=== PATIENT | female | born 1970 | race Caucasian/White ===

== ENCOUNTER → 2018-04-13 | Outpatient (CLI) | payer OTHER ==
--- NOTE | 2018-04-13 22:06 | CONS ---
CONSULTATION REASON FOR CONSULTATION: Hypersomnia. This is a 47-year-old, obese female patient coming in for daytime sleepiness and tiredness. This is an ongoing problem. It has been going on for many years. This patient has multiple medical problems and comorbidities. To mention a few, she has hypertension, diabetes mellitus, and diabetic nerve pain and fibromyalgia and degenerative arthritis and degenerative disc disease involving the cervical and lumbar spine. She has also chronic anxiety, depression and panic attacks. As such, she is on a combination of medications several of which have side effects and toxicities and implications on her sleep quality and patterns. Specifically, the patient is on a combination of citalopram and Cymbalta for chronic pain. She is also taking Neurontin 300 mg 3 times a day which is totaling 900 mg on a daily basis. She snores heavily. She goes to bed around 2:30 am, wakes up at 9:30 am in the morning. She does not feel refreshed. She can easily fall asleep during the day as she does and she takes brief naps here and there. In addition, she has restlessness in lower extremities, leg kicks, cramps, grinding of the teeth, snoring. No nightmares. No hallucinations. No sleep paralysis. No cataplexy. Her current [place] score is at 13. Due to her chronic pain, anxiety and depression, the patient has been utilizing marijuana and she typically smokes 1-2 joints at bedtime and several other joints during the day. As far as pain control, she used to take narcotic medication to which she was labeled as allergic at a later stage and I do not see any pain killers or narcotic medications currently on her list. Weight has been up gradually over the years. The patient has gained significant amount of weight. She does have features of obstructive sleep apnea that needs to be further investigated. PAST MEDICAL HISTORY: Of hypertension, diabetes mellitus, peripheral neuropathy, fibromyalgia and degenerative arthritis. Cervical and lumbar disc disease. Osteoarthritis, depression, anxiety, panic attacks, and irritable bowel syndrome and carpal tunnel disease. PAST SURGICAL HISTORY: Surgeries include laparoscopic cyst removal from the abdomen/ovaries, hysterectomy, oophorectomy. EGD, tonsillectomy, heel spur surgery on both feet. OUTPATIENT MEDICATION LIST: Includes: 1. Xanax 0.5 mg twice a day p.r.n. basis. 2. Naprosyn 500 mg twice a day on a p.r.n. basis. 3. 4 mg twice a day. 4. She is also on citalopram 40 mg p.o. daily. 5. Cymbalta 600 mg p.o. daily. 6. Metformin 750 mg p.o. twice a day. 7. Actos 15 mg p.o. daily. 8. Neurontin 300 mg 3 times a day. 9. Lipitor 40 mg p.o. daily. 10.Oxybutynin 50 mg p.o. daily. 11.Lisinopril 10 mg p.o. daily. 12.Verapamil 120 mg p.o. daily. 13.Zyrtec 10 mg p.o. daily. 14.Ranitidine 175 mg p.o. twice a day. 15.Omeprazole 20 mg p.o. daily. SOCIAL HISTORY: She is a nonsmoker. No history of alcohol. No history of IV drugs. She does smoke marijuana in excess. FAMILY HISTORY: Negative for sleep apnea. REVIEW OF SYSTEMS: 12-point review of system was done. Positive findings are mentioned above in history of present illness. She is quite sleepy and snores. She has restless sleep. During the day she is excessively sleepy. No history of any motor vehicle accident because of feeling drowsy or sleepy. No hallucinations. No cataplexy. No sleep paralysis. She has increased anxiety, panic, depression and no nocturnal heartburn. No nocturnal chest pain. No nocturnal shortness of breath. PHYSICAL EXAMINATION: BP is 135/70, pulse 76, respirations 16, temperature 97.8. Saturation 96% on room air. [place] Score is at 12. Neck size 16.5 inches. Weight is 292. Height is 5 feet 6 inches, BMI is 47.1. General appearance: Calm, comfortable, obese. Head is atraumatic, normocephalic. Neck is short and supple. There is no JVD. No goiter or neck masses. Lung sounds are diminished. LUNGS: Diminished bilaterally. HEART: Sounds are regular rate and rhythm. Normal S1, S2. No S3, S4. No murmurs. ABDOMEN: Soft and nontender. No direct tenderness, rebound or guarding. No organomegaly. EXTREMITIES: No edema. No cyanosis or clubbing. Neurologically she is awake and alert. She is moving all 4 extremities without limitation. PSYCHIATRIC: Positive anxiety and history of depression. No active signs of psychosis. IMPRESSION: 1. Excessive daytime sleepiness. Needs to be further investigated, [place] score of 12. Consider drug induced hypersomnia. Consider hypersomnia related to comorbidities causing sleep fragmentation and excessive daytime sleepiness. One possibility obviously is obstructive sleep apnea as the patient has a BMI of 47.1, in addition to other clinical anatomic features of obstructive sleep apnea. Never the less, this may not be the sole problem as the patient has neuropathy, chronic pain, anxiety and depression. All known to cause increased daytime sleepiness. PLAN: 1. Proceed with a screening polysomnogram. 2. Encourage weight loss. 3. Implement good sleep hygiene measures. 4. Recommend exercise program afternoon or late at night time. 5. We will continue to follow and make further recommendations based on the results of the sleep study. MMODL / IJN: [id number] /
== END | disposition home or self-care (01) ==
LOC: SLEEP 14:20
PROVIDERS: ATTEND Internal Medicine Critical Care Medicine
DX: G47.10 Hypersomnia, unspecified (principal); R06.83 Snoring; F12.90 Cannabis use, unspecified, uncomplicated; F41.0 Panic disorder [episodic paroxysmal anxiety]; E66.9 Obesity, unspecified; R53.83 Other fatigue; R25.2 Cramp and spasm; R45.1 Restlessness and agitation; I10 Essential (primary) hypertension; E11.42 Type 2 diabetes mellitus with diabetic polyneuropathy; M79.7 Fibromyalgia; M47.812 Spondylosis without myelopathy or radiculopathy, cervical region; M47.816 Spondylosis without myelopathy or radiculopathy, lumbar region; M50.30 Other cervical disc degeneration, unspecified cervical region; M51.36 Other intervertebral disc degeneration, lumbar region; G89.29 Other chronic pain; Z79.899 Other long term (current) drug therapy; Z88.5 Allergy status to narcotic agent; Z79.84 Long term (current) use of oral hypoglycemic drugs; Z79.1 Long term (current) use of non-steroidal anti-inflammatories (NSAID); Z68.42 Body mass index [BMI] 45.0-49.9, adult
CPT/HCPCS: 99211